=== PATIENT | male | born 1995 | race Caucasian/White ===

== ENCOUNTER 2017-07-21 08:07 | Emergency (ER) | payer BC, OTHER ==
[~2017-07-21] VITALS: Ht 182.9 cm; Wt 100.0 kg
[2017-07-21 09:27] VITALS: BP 117/58; PULSE 56; RESP 14; TEMP 99.2; O2SAT 100
[2017-07-21 10:20] LABS: AUTOMATED NEUTROPHIL # 6.1 TH/MM3 (1.8-7.7); BASOPHIL # 0.1 TH/MM3 (0-0.2); BASOPHIL % 0.9 % (0.0-2.0); EOSINOPHIL # 0.2 TH/MM3 (0-0.4); EOSINOPHIL % 2.1 % (0.0-4.0); HEMATOCRIT 45.4 % (39.0-51.0); HEMOGLOBIN 15.8 GM/DL (13.0-17.0); MEAN CELL VOLUME 87.7 FL (80.0-100.0); MEAN CORPUSCULAR HEMOGLOBIN 30.5 PG (27.0-34.0); MEAN CORPUSCULAR HGB CONC 34.8 % (32.0-36.0); MEAN PLATELET VOLUME 7.6 FL (7.0-11.0); MONO % 8.5 % (0.0-8.0); MONOCYTE # 0.7 TH/MM3 (0-0.9); NEUT % 75.5 % (16.0-70.0); PLATELET COUNT 215 TH/MM3 (150-450); RED BLOOD COUNT 5.18 MIL/MM3 (4.50-5.90); RED CELL DISTRIBUTION WIDTH 12.6 % (11.6-17.2); WHITE BLOOD COUNT 8.1 TH/MM3 (4.0-11.0)
[2017-07-21 10:47] LABS: AST (GOT) 19 U/L (15-39); BICARBONATE 26.6 MEQ/L (21.0-32.0); BLOOD UREA NITROGEN 11 MG/DL (7-18); CALCIUM 8.9 MG/DL (8.5-10.1); CHLORIDE 107 MEQ/L (98-107); CREATININE 0.85 MG/DL (0.60-1.30); GLOMERULAR FILTRATION RATE 115 ML/MIN (>89); GLUCOSE,RANDOM 91 MG/DL (74-106); SODIUM (NA) 140 MEQ/L (136-145)
[2017-07-21 10:48] LABS: ALT (GPT) 21 U/L (9-52)
[2017-07-21 10:50] LABS: ALKALINE PHOSPHATASE 76 U/L (45-117); TOTAL BILIRUBIN ADULT 1.1 MG/DL (0.2-1.0); TOTAL PROTEIN 7.3 GM/DL (6.4-8.2)
[2017-07-21 10:51] LABS: ACETAMINOPHEN LESS THAN 2.0 MCG/ML (10.0-30.0)
--- NOTE | 2017-07-21 12:07 | PD ---
HPI Chief Complaint: Psychiatric Symptoms Time Seen by Provider: 11:51 Travel History International Travel<30 days: No Contact w/Intl Traveler<30days: No Traveled to known affect area: No History of Present Illness HPI 21-year-old male presents to the ED under Nunez act for evaluation after consuming approximately 10 tablets of 1 mg Ativan around 7 PM last night. Patient states that he took the medication because "I'm stressed out and [place] He declines to enumerate his personal stressors. He denies suicidal or homicidal ideation. He denies psychiatric history, previous suicide attempt or psychiatric hospitalization. He denies chronic illness. He denies somatic complaints at this time. He denies tobacco use, illicit drug use or alcohol use. [facility] Social History Tobacco Use: No Allergies-Medications (Allergen,Severity, Reaction): Coded Allergies: No Known Allergies (Unverified , 07/21/17) Review of Systems Except as stated in HPI: all other systems reviewed are Neg Physical Exam Narrative GENERAL: Well-nourished, well-developed white male in no acute distress. Alert , oriented. PSYCHIATRIC: No delusional thought processes. No hallucinations. Calm. Cooperative. SKIN: Focused skin assessment warm/dry. HEAD: Normocephalic. EYES: No scleral icterus. No injection or drainage. Pupils 3-4 mm and responsive bilaterally. NECK: Supple, trachea midline. No JVD or lymphadenopathy. CARDIOVASCULAR: Regular rate and rhythm without murmurs, gallops, or rubs. RESPIRATORY: Breath sounds clear and equal bilaterally. No accessory muscle use. GASTROINTESTINAL: Abdomen soft, non-tender, nondistended. Active bowel sounds. MUSCULOSKELETAL: No cyanosis, or edema. Moves extremities spontaneously. BACK: Nontender without obvious deformity. No CVA tenderness. Data Data Last Documented VS Vital Signs Date Time Temp Pulse Resp B/P (MAP) Pulse Ox O2 Delivery O2 Flow Rate FiO2 07/21/17 12:29 98.0 58 18 117/68 (84) 100 Room Air Orders Orders Electrocardiogram (07/21/17 09:38) Complete Blood Count With Diff (07/21/17 09:38) Comprehensive Metabolic Panel (07/21/17 09:38) Urinalysis - C+S If Indicated (07/21/17 09:38) Psych Screen (07/21/17 09:38) Drug Screen, Random Urine (07/21/17 09:38) Alcohol (Ethanol) (07/21/17 09:38) Salicylates (Aspirin) (07/21/17 09:38) Tylenol (Acetaminophen) (07/21/17 09:38) Diet Regular Basic (07/21/17 Lunch) Labs Laboratory Tests Test 07/21/17 10:00 White Blood Count 8.1 TH/MM3 Red Blood Count 5.18 MIL/MM3 Hemoglobin 15.8 GM/DL Hematocrit 45.4 % Mean Corpuscular Volume 87.7 FL Mean Corpuscular Hemoglobin 30.5 PG Mean Corpuscular Hemoglobin Concent 34.8 % Red Cell Distribution Width 12.6 % Platelet Count 215 TH/MM3 Mean Platelet Volume 7.6 FL Neutrophils (%) (Auto) 75.5 % Lymphocytes (%) (Auto) 13.0 % Monocytes (%) (Auto) 8.5 % Eosinophils (%) (Auto) 2.1 % Basophils (%) (Auto) 0.9 % Neutrophils # (Auto) 6.1 TH/MM3 Lymphocytes # (Auto) 1.0 TH/MM3 Monocytes # (Auto) 0.7 TH/MM3 Eosinophils # (Auto) 0.2 TH/MM3 Basophils # (Auto) 0.1 TH/MM3 CBC Comment DIFF FINAL Differential Comment Blood Urea Nitrogen 11 MG/DL Creatinine 0.85 MG/DL Random Glucose 91 MG/DL Total Protein 7.3 GM/DL Albumin 4.0 GM/DL Calcium Level 8.9 MG/DL Alkaline Phosphatase 76 U/L Aspartate Amino Transf (AST/SGOT) 19 U/L Alanine Aminotransferase (ALT/SGPT) 21 U/L Total Bilirubin 1.1 MG/DL Sodium Level 140 MEQ/L Potassium Level 3.8 MEQ/L Chloride Level 107 MEQ/L Carbon Dioxide Level 26.6 MEQ/L Anion Gap 6 MEQ/L Estimat Glomerular Filtration Rate 115 ML/MIN Salicylates Level LESS THAN 1.7 MG/DL Acetaminophen Level LESS THAN 2.0 MCG/ML Ethyl Alcohol Level LESS THAN 3 MG/DL MDM Medical Decision Making Medical Screen Exam Complete: Yes Emergency Medical Condition: Yes Differential Diagnosis Adjustment disorder versus anxiety versus bipolar versus depression versus dementia versus electrolyte disorder versus malingering versus mood disorder versus ODD versus psychosis versus PTSD versus schizophrenia versus schizoaffective disorder versus substance-induced mood disorder versus other Narrative Course 21-year-old male presents to the ED under Nunez act for evaluation after consuming approximately 10 tablets of 1 mg Ativan around 7 PM last night. Patient states that he took the medication because "I'm stressed out and [place] He declines to enumerate his personal stressors. He denies suicidal or homicidal ideation. He denies psychiatric history, previous suicide attempt or psychiatric hospitalization. He denies chronic illness. He denies somatic complaints at this time. He denies tobacco use, illicit drug use or alcohol use. Vitals reviewed. On exam the patient is alert, oriented, calm and cooperative. He is sitting upright in the stretcher. He is requesting a meal. Pupils are 3-4 mm and reactive bilaterally. Chest CTAB. Abdomen soft and nontender. No lower extremity edema. CBC, CMP unremarkable. Salicylates, acetaminophen and alcohol negative. UA and drug screen are pending. It has been approximately 17 hours since the patient took the alprazolam. He is medically cleared for psychiatric evaluation. Diagnosis Primary Impression: Encounter for medical clearance for patient Sandra Thayer Jul 21, 2017 12:07
[2017-07-21 12:29] VITALS: BP 117/68; PULSE 58; RESP 18; TEMP 98; O2SAT 100
[2017-07-21 14:35] LABS: BILIRUBIN, URINE NEG (NEG); BLOOD, URINE NEG (NEG); GLUCOSE,URINE NEG (NEG); KETONE, URINE NEG (NEG); MUCUS URINE FEW /lpf (OCC); NITRITE,URINE NEG (NEG); PH, URINE 6.5 (5.0-8.5); SQUAMOUS EPITHELIAL CELL URINE <1 /hpf (0-5); URINE COLOR YELLOW (YELLW/STRAW); URINE LEUKOCYTE ESTERASE NEG (NEG)
--- NOTE | 2017-07-21 16:36 | EKG ---
Date Performed: 07/21/2017 Time Performed: 11:08:54 PTAGE: 21 years EKG: Sinus rhythm LEFT ANTERIOR FASCICULAR BLOCK DIFFUSE ST ELEVATION CONSISTENT WITH EARLY REPOLARIZATION ABNORMAL EC G NO PREVIOUS TRACING DOCTOR: Brandan Alcantar Interpretating Date/Time 07/21/2017 16:35:38
--- NOTE | 2017-07-21 18:31 | PD ---
History of Present Illness Chief Complaint: Psychiatric Symptoms Time Seen by Provider: 18:00 Travel History International Travel<30 Days: No Contact w/Intl Traveler<30days: No Known affected area: No Legal Status Legal Status: Nunez Act Nunez Act Signed By: Rhonda Santacruz History of Present Illness: History of Present Illness HPI 21-year-old, single male, [facility], with history of anxiety who presents to the ED under Nunez initiated by law enforcement. Police were called by his mother to report that the patient had taken an unknown amount of medication earlier in the morning. The patient admitted to taking the medication due to feeling depressed. Original reports from law enforcement as well as the mother indicated that he had taken approximately 10 1 mg Ativan. The patient however states that he only took 3 of them and that he did not take them because he wanted to kill himself only because he was feeling very stressed and anxious. This was medication that was prescribed for him last year while he was undergoing treatment for cancer. Patient was medically cleared and then was monitored in secure environment. He presented no behavioral concerns and no suicidality. Electronic medical record is reviewed. No previous contact with [facility] psychiatry. Current toxicology is positive for cannabinoids. The patient is alert, oriented 4, dressed in [facility] and maintaining basic hygiene. The patient speaks with a slight speech impediment due to his hearing difficulty. His speech is of normal rate and tone. His affect is variable and tearful at times. His mood is depressed. There is no evidence of any hallucinations, delusions or paranoia. There is no evidence of any raul. He denies any suicidal or homicidal ideation, intent or plan. He states" I do not want to kill myself. I took the medicine because it supposed to release anxiety. I do not like being here in [place] and I feel depressed but I do not want to kill myself. I want to do things in him saving up to buy a car." Patient reports he sleeps well. Good appetite. Adequate level of energy. Attention and concentration are adequate. Fund of knowledge is average. Telephone call to his mother at [phone] to obtain collateral information.Mother reports that she does not believe that he took # 10 pills but that she was concerned when she found him sedated earlier this morning. She is not concerned if he were to be discharged from the hospital and agrees to pick him up. She would like to see him involved in counseling. [facility] Past Medical History Depression: Yes Diminished Hearing: No Immunizations Current: Yes Past Surgical History Surgical History: No Previous Surgery Psychiatric History Psychiatric History Hx Psychiatric Treatment: 2 previous psychiatric hospitalizations. 1 when he was 16 years old and told a teacher he wanted to hurt himself. Second hospitalization 3 years ago after breakup with a girlfriend. No previous suicide attempts. Currently not on any psychiatric medication History of Inpatient Treatment: Yes Guns or firearms in home: No Social History Patient was born and raised in [place]. He moved down to [place] approximately month 9 months ago. He lives with his mother, stepfather and his sister. He has completed high school. 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 Hx Alcohol Use: No Hx Tobacco Use: No Hx Substance Use: Yes Substance Use Type: Marijuana Hx of Substance Use Treatment: No Family Psychiatric History Father with history of alcohol abuse Allergies-Medications (Allergen,Severity, Reaction): Coded Allergies: No Known Allergies (Unverified , 07/21/17) Reported Meds & Prescriptions Reported Meds & Active Scripts Active No Active Prescriptions or Reported Medications Review of Systems Ears, nose, mouth, throat: COMPLAINS OF: Hearing loss Psychiatric: COMPLAINS OF: Anxiety Except as stated in HPI: all other systems reviewed are Neg Mental Status Examination Appearance: Appropriate, Disheveled Consciousness: Alert Orientation: x4 Motor Activity: Normal gait Speech: Speech impediment Language: Adequate Fund of Knowledge: Adequate Attention and Concentration: Adequate Memory: Unremarkable Mood: Appropriate, Sad Affect: Appropriate Thought Process & Associations: Intact, Logical, Goal directed Thought Content: Appropriate Hallucination Type: None Delusion Type: None Suicidal Ideation: No Suicidal Plan: No Suicidal Intention: No Homicidal Ideation: No Homicidal Plan: No Homicidal Intention: No Insight: Fair Judgment: Impulsive MDM Medical Decision Making Medical Record Reviewed: Yes Assessment/Plan 21-year-old, single male, [facility], with history of anxiety who presents to the ED under Nunez initiated by law enforcement. Police were called by his mother to report that the patient had taken an unknown amount of medication earlier in the morning. The patient admitted to taking the medication due to feeling depressed. Original reports from law enforcement as well as the mother indicated that he had taken approximately 10 1 mg Ativan. The patient however states that he only took 3 of them and that he did not take them because he wanted to kill himself only because he was feeling very stressed and anxious. This was medication that was prescribed for him last year while he was undergoing treatment for cancer. Patient was medically cleared and then was monitored in secure environment. He presented no behavioral concerns and no suicidality. The patient during his period of observation presented no evidence of an unstable mental illness has defined under the Nunez act. Collateral information was obtained from the mother. She has no concerns if he is to be discharged from the ED. The patient will benefit from outpatient counseling and he is encouraged to do so. The Nunez act is lifted. Psychiatrically clear for discharge from the ED. Orders Orders Electrocardiogram (07/21/17 09:38) Complete Blood Count With Diff (07/21/17 09:38) Comprehensive Metabolic Panel (07/21/17 09:38) Urinalysis - C+S If Indicated (07/21/17 09:38) Psych Screen (07/21/17 09:38) Drug Screen, Random Urine (07/21/17 09:38) Alcohol (Ethanol) (07/21/17 09:38) Salicylates (Aspirin) (07/21/17 09:38) Tylenol (Acetaminophen) (07/21/17 09:38) Diet Regular Basic (07/21/17 Lunch) Diet Regular Basic (07/21/17 Dinner) Results Vital Signs Date Time Temp Pulse Resp B/P (MAP) Pulse Ox O2 Delivery O2 Flow Rate FiO2 07/21/17 12:29 98.0 58 18 117/68 (84) 100 Room Air 07/21/17 09:27 99.2 56 14 117/58 (77) 100 Laboratory Tests Test 07/21/17 10:00 07/21/17 14:00 White Blood Count 8.1 Red Blood Count 5.18 Hemoglobin 15.8 Hematocrit 45.4 Mean Corpuscular Volume 87.7 Mean Corpuscular Hemoglobin 30.5 Mean Corpuscular Hemoglobin Concent 34.8 Red Cell Distribution Width 12.6 Platelet Count 215 Mean Platelet Volume 7.6 Neutrophils (%) (Auto) 75.5 Lymphocytes (%) (Auto) 13.0 Monocytes (%) (Auto) 8.5 Eosinophils (%) (Auto) 2.1 Basophils (%) (Auto) 0.9 Neutrophils # (Auto) 6.1 Lymphocytes # (Auto) 1.0 Monocytes # (Auto) 0.7 Eosinophils # (Auto) 0.2 Basophils # (Auto) 0.1 CBC Comment DIFF FINAL Differential Comment Blood Urea Nitrogen 11 Creatinine 0.85 Random Glucose 91 Total Protein 7.3 Albumin 4.0 Calcium Level 8.9 Alkaline Phosphatase 76 Aspartate Amino Transf (AST/SGOT) 19 Alanine Aminotransferase (ALT/SGPT) 21 Total Bilirubin 1.1 Sodium Level 140 Potassium Level 3.8 Chloride Level 107 Carbon Dioxide Level 26.6 Anion Gap 6 Estimat Glomerular Filtration Rate 115 Salicylates Level LESS THAN 1.7 Acetaminophen Level LESS THAN 2.0 Ethyl Alcohol Level LESS THAN 3 Urine Color YELLOW Urine Turbidity CLEAR Urine pH 6.5 Urine Specific [place] 1.032 Urine Protein TRACE Urine Glucose (UA) NEG Urine Ketones NEG Urine Occult Blood NEG Urine Nitrite NEG Urine Bilirubin NEG Urine Urobilinogen 2.0 Urine Leukocyte Esterase NEG Urine RBC 3 Urine WBC 1 Urine Squamous Epithelial Cells <1 Urine Mucus FEW Microscopic Urinalysis Comment CULT NOT INDICATED Urine Opiates Screen NEG Urine Barbiturates Screen NEG Urine Amphetamines Screen NEG Urine Benzodiazepines Screen NEG Urine Cocaine Screen NEG Urine Cannabinoids Screen POS Diagnosis Primary Impression: Encounter for medical clearance for patient hold Additional Impression: Adjustment disorder Psychiatrically Cleared: Yes Med/ Other Pt Specific Info: No Meds Exist/No RX given Prescriptions No Active Prescriptions or Reported Meds Disposition: 01 DISCHARGE HOME Condition: Stable Problem Qualifiers Additional Impression: Adjustment disorder Qualified Codes: F43.23 - Adjustment disorder with mixed anxiety and depressed mood Miya Diallo Jul 21, 2017 18:31
[2017-07-21 18:35] VITALS: BP 135/80; PULSE 104; RESP 20; O2SAT 99
--- NOTE | 2017-07-21 19:16 | PD ---
Data Data Last Documented VS Vital Signs Date Time Temp Pulse Resp B/P (MAP) Pulse Ox O2 Delivery O2 Flow Rate FiO2 07/21/17 18:35 104 20 135/80 (98) 99 07/21/17 12:29 98.0 Room Air Orders Orders Electrocardiogram (07/21/17 09:38) Complete Blood Count With Diff (07/21/17 09:38) Comprehensive Metabolic Panel (07/21/17 09:38) Urinalysis - C+S If Indicated (07/21/17 09:38) Psych Screen (07/21/17 09:38) Drug Screen, Random Urine (07/21/17 09:38) Alcohol (Ethanol) (07/21/17 09:38) Salicylates (Aspirin) (07/21/17 09:38) Tylenol (Acetaminophen) (07/21/17 09:38) Diet Regular Basic (07/21/17 Lunch) Diet Regular Basic (07/21/17 Dinner) Ed Discharge Order (07/21/17 19:15) Labs Laboratory Tests Test 07/21/17 10:00 07/21/17 14:00 White Blood Count 8.1 TH/MM3 Red Blood Count 5.18 MIL/MM3 Hemoglobin 15.8 GM/DL Hematocrit 45.4 % Mean Corpuscular Volume 87.7 FL Mean Corpuscular Hemoglobin 30.5 PG Mean Corpuscular Hemoglobin Concent 34.8 % Red Cell Distribution Width 12.6 % Platelet Count 215 TH/MM3 Mean Platelet Volume 7.6 FL Neutrophils (%) (Auto) 75.5 % Lymphocytes (%) (Auto) 13.0 % Monocytes (%) (Auto) 8.5 % Eosinophils (%) (Auto) 2.1 % Basophils (%) (Auto) 0.9 % Neutrophils # (Auto) 6.1 TH/MM3 Lymphocytes # (Auto) 1.0 TH/MM3 Monocytes # (Auto) 0.7 TH/MM3 Eosinophils # (Auto) 0.2 TH/MM3 Basophils # (Auto) 0.1 TH/MM3 CBC Comment DIFF FINAL Differential Comment Blood Urea Nitrogen 11 MG/DL Creatinine 0.85 MG/DL Random Glucose 91 MG/DL Total Protein 7.3 GM/DL Albumin 4.0 GM/DL Calcium Level 8.9 MG/DL Alkaline Phosphatase 76 U/L Aspartate Amino Transf (AST/SGOT) 19 U/L Alanine Aminotransferase (ALT/SGPT) 21 U/L Total Bilirubin 1.1 MG/DL Sodium Level 140 MEQ/L Potassium Level 3.8 MEQ/L Chloride Level 107 MEQ/L Carbon Dioxide Level 26.6 MEQ/L Anion Gap 6 MEQ/L Estimat Glomerular Filtration Rate 115 ML/MIN Salicylates Level LESS THAN 1.7 MG/DL Acetaminophen Level LESS THAN 2.0 MCG/ML Ethyl Alcohol Level LESS THAN 3 MG/DL Urine Color YELLOW Urine Turbidity CLEAR Urine pH 6.5 Urine Specific [place] 1.032 Urine Protein TRACE mg/dL Urine Glucose (UA) NEG mg/dL Urine Ketones NEG mg/dL Urine Occult Blood NEG Urine Nitrite NEG Urine Bilirubin NEG Urine Urobilinogen 2.0 MG/DL Urine Leukocyte Esterase NEG Urine RBC 3 /hpf Urine WBC 1 /hpf Urine Squamous Epithelial Cells <1 /hpf Urine Mucus FEW /lpf Microscopic Urinalysis Comment CULT NOT INDICATED Urine Opiates Screen NEG Urine Barbiturates Screen NEG Urine Amphetamines Screen NEG Urine Benzodiazepines Screen NEG Urine Cocaine Screen NEG Urine Cannabinoids Screen POS MDM Supervised Visit with LANCE: Yes Narrative Course Seen by Miya Diallo, will discharge. Diagnosis adjustment disorder with anxiety. Diagnosis Primary Impression: Encounter for medical clearance for patient hold Additional Impression: Adjustment disorder Qualified Codes: F43.23 - Adjustment disorder with mixed anxiety and depressed mood Med/Other Pt SpecificInfo: No Change to Meds Scripts No Active Prescriptions or Reported Meds Disposition: DISCHARGE HOME Condition: Stable Adis Yao MD Jul 21, 2017 19:16
== END 2017-07-21 20:51 | disposition home or self-care (01) ==
LOC: NEDAMB 08:07 → NEPJ 20:51
DX: F43.23 Adjustment disorder with mixed anxiety and depressed mood (principal); F12.90 Cannabis use, unspecified, uncomplicated; R94.31 Abnormal electrocardiogram [ECG] [EKG]
CPT/HCPCS: 80053; 80307; 81001; 85025; 93005; 99284